=== PATIENT | female | born 1995 | race African-American/Black ===

== ENCOUNTER 2024-02-01 22:28 | Emergency (ER) | payer BC, MEDICAID ==
[~2024-02-01] VITALS: Ht 154.9 cm; Wt 65.8 kg
[~2024-02-01 22:28] MED LIST: PHEN-786 PO
[2024-02-01 23:45] VITALS: BP 128/67; PULSE 18; RESP 14; TEMP 98.5; O2SAT 98
== END 2024-02-01 23:47 | disposition home or self-care (01) ==
LOC: ER 22:29
DX: S80.01XA Contusion of right knee, initial encounter (principal); V00.131A Fall from skateboard, initial encounter; Y93.51 Activity, roller skating (inline) and skateboarding; Y92.89 Other specified places as the place of occurrence of the external cause; Y99.8 Other external cause status
CPT/HCPCS: 29505; 73564; 99284